=== PATIENT | female | born 1945 | race Caucasian/White ===

== ENCOUNTER → 2016-09-10 | Outpatient (REF) | payer MEDICARE, OTHER ==
[2016-09-10 13:08] LABS: FREE T4 1.33 NG/DL (0.76-1.46)
== END ==
LOC: M LABDRAW1 11:12
PROVIDERS: ATTEND Family Medicine
DX: E03.9 Hypothyroidism, unspecified (principal); E11.65 Type 2 diabetes mellitus with hyperglycemia

== ENCOUNTER → 2016-12-31 | Outpatient (REF) | payer MEDICARE, OTHER ==
[2016-12-31 14:23] LABS: ALBUMIN/GLOBULIN RATIO 0.48 (1.00-1.93); BILIRUBIN,TOTAL 0.3 MG/DL (0.2-1.0); CALCIUM LEVEL 8.5 MG/DL (8.8-10.2); CREATININE FOR GFR 1.18 MG/DL (0.55-1.02); GLOMERULAR FILTRATION RATE 48.2 (>39); TOTAL PROTEIN 6.2 GM/DL (6.4-8.2)
== END ==
LOC: M LABDRAW1 13:51
PROVIDERS: ATTEND Family Medicine
DX: E11.65 Type 2 diabetes mellitus with hyperglycemia (principal)

== ENCOUNTER → 2017-06-04 | Outpatient (REF) | payer MEDICARE, OTHER | LOC: M LAB REF 13:17 | PROVIDERS: ATTEND Surgery | DX: L72.3 Sebaceous cyst (principal) ==

== ENCOUNTER → 2017-06-25 | Outpatient (REF) | payer MEDICARE, OTHER | LOC: M LAB REF 18:57 | DX: N64.9 Disorder of breast, unspecified (principal) | CPT/HCPCS: 88305 ==

== ENCOUNTER → 2017-06-30 | Outpatient (REF) | payer MEDICARE, OTHER ==
[2017-06-30 11:56] LABS: HEMATOCRIT 23.3 % (36.0-47.0); HEMOGLOBIN 7.1 g/dl (12.0-16.0); MEAN CORPUSCULAR HEMOGLOBIN 26.1 pg (27.0-33.0); MEAN CORPUSCULAR HGB CONC 30.5 g/dl (32.0-36.5); MEAN CORPUSCULAR VOLUME 85.7 fl (80.0-96.0); PLATELET COUNT, AUTOMATED 112 10^3/uL (150-450); RED BLOOD COUNT 2.72 10^6/uL (4.00-5.40); RED CELL DISTRIBUTION WIDTH 21.4 % (11.5-14.5); WHITE BLOOD COUNT 3.6 10^3/uL (4.0-10.0)
[2017-06-30 11:59] LABS: ADD MANUAL DIFFER YES; DIFF SLIDE NUMBER 229; POS COUNT POS FLAG; POSITIVE DIFF POS FLAG; POSITIVE MORPH POS FLAG
[2017-06-30 12:34] LABS: ALBUMIN 2.6 GM/DL (3.2-5.2); ALBUMIN/GLOBULIN RATIO 0.53 (1.00-1.93); ALKALINE PHOSPHATASE 289 U/L (45-117); ALT/SGPT 22 U/L (12-78); ANION GAP 9 MEQ/L (8-16); AST/SGOT 36 U/L (7-37); BILIRUBIN,TOTAL 0.2 MG/DL (0.2-1.0); BLOOD UREA NITROGEN 42 MG/DL (7-18); CALCIUM LEVEL 8.2 MG/DL (8.8-10.2); CARBON DIOXIDE LEVEL 18 MEQ/L (21-32); CHLORIDE LEVEL 110 MEQ/L (98-107); CHOLESTEROL LEVEL 181 MG/DL (<200); CHOLESTEROL RISK RATIO 10.647 (<5); CREATININE FOR GFR 1.16 MG/DL (0.55-1.02); GLUCOSE, FASTING 170 MG/DL (83-110); HDL CHOLESTEROL 17 MG/DL (>40); NON-HDL-C 164 MG/DL; POTASSIUM SERUM 4.1 MEQ/L (3.5-5.1); SODIUM LEVEL 137 MEQ/L (136-145); THYROXINE (T4) 5.3 UG/DL (4.5-12.0); TOTAL PROTEIN 7.5 GM/DL (6.4-8.2); TRIGLYCERIDES LEVEL 401 MG/DL (<150)
[2017-06-30 12:42] LABS: EOSINOPHILS 2 % (0-5); LYMPHOCYTES 60 % (16-52); MONOCYTES 6 % (0-8); NEUTROPHILS 32 % (35-75); PLATELET ESTIMATE NORMAL (NORMAL)
[2017-06-30 12:52] LABS: CREATININE, URINE 72.1 MG/DL; MAU/CREAT RATIO 4160.8 MCG/MG (0.0-30.0)
[2017-06-30 13:29] LABS: ESTIMATED AVERAGE GLUCOSE 169 MG/DL (60-110); HEMOGLOBIN A1c 7.5 %
== END ==
LOC: M LABDRAW1 10:48
DX: E11.65 Type 2 diabetes mellitus with hyperglycemia (principal); E03.9 Hypothyroidism, unspecified
CPT/HCPCS: 84443

== ENCOUNTER → 2017-07-07 | Outpatient (REF) | payer MEDICARE, OTHER | LOC: M LAB REF 18:12 | DX: C85.90 Non-Hodgkin lymphoma, unspecified, unspecified site (principal); C83.11 Mantle cell lymphoma, lymph nodes of head, face, and neck (principal) | CPT/HCPCS: 86706; 88313 ==

== ENCOUNTER → 2017-07-07 | Outpatient (REF) | payer MEDICARE, OTHER ==
[2017-07-08 11:33] LABS: HEPATITIS B SURFACE ANTIGEN NEGATIVE (NEGATIVE)
[2017-07-08 11:41] LABS: HEPATITIS C VIRUS ABY INDEX 0.2 INDEX (<0.8)
[2017-07-08 11:42] LABS: HEPATITIS B CORE ANTIBODY IGM NEGATIVE (NEGATIVE); HIV 1&2 SCREEN CENTAUR NEGATIVE (NEGATIVE)
[2017-07-08 12:02] LABS: HEPATITIS B SURFACE ANTIBODY NEGATIVE (POSITIVE)
== END ==
LOC: M LAB REF 17:28
DX: C85.90 Non-Hodgkin lymphoma, unspecified, unspecified site (principal)
CPT/HCPCS: 86706

== ENCOUNTER → 2017-07-13 | Outpatient (CLI) | payer MEDICARE, OTHER | LOC: M CARPUL 08:25 | DX: C83.10 Mantle cell lymphoma, unspecified site (principal); Z79.899 Other long term (current) drug therapy | CPT/HCPCS: 93306 ==

== ENCOUNTER → 2017-07-14 | Outpatient (CLI) | payer MEDICARE, OTHER | LOC: M PLARAD 09:56 | DX: C83.14 Mantle cell lymphoma, lymph nodes of axilla and upper limb (principal) | CPT/HCPCS: 78815 ==

== ENCOUNTER → 2017-07-23 | Outpatient (CLI) | payer MEDICARE, OTHER ==
[~2017-07-23] MED LIST: CLINDAMYCIN 600 MG/50 ML PREMIX BAG As Ordered; LIDOCAINE 2% MDV 20 ML VIAL As Ordered; MIDAZOLAM INJ 2 MG/2 ML VIAL (J2250) As Ordered; fentaNYL 100 MCG/2 ML INJECTION (J3010) As Ordered
== END | disposition home or self-care (01) ==
LOC: M IRPRO 10:42
DX: C83.10 Mantle cell lymphoma, unspecified site (principal)
CPT/HCPCS: 36561

== ENCOUNTER 2017-08-18 12:45 | Outpatient (CLI) | payer MEDICARE, OTHER ==
[2017-08-18] MEDS: diphenhydrAMINE 25 MG CAP PO (13:00)
[2017-08-18] MEDS: ACETAMINOPHEN TAB 650MG DOSE (2X325MG) PO (13:01)
[2017-08-18 16:07] LABS: IMMEDIATE SPIN CROSSMATCH 1 2
[2017-08-18] MEDS: SODIUM CHLORIDE 0.9% INJ 10 ML SYR IV (18:13)
[2017-08-19] MEDS ORDERED: SODIUM CHLORIDE 0.9% INJ 10 ML SYR IV (09:00)
== END 2017-08-18 18:50 | disposition home or self-care (01) ==
LOC: M OPCLI5PR 12:45 → M MS5PR 12:45 → M OPCLI5PR 18:50
DX: D64.9 Anemia, unspecified (principal); Z88.0 Allergy status to penicillin; Z88.2 Allergy status to sulfonamides; E03.9 Hypothyroidism, unspecified
CPT/HCPCS: 36430

== ENCOUNTER → 2017-08-18 | Outpatient (REF) | payer MEDICARE, OTHER ==
[2017-08-18 14:13] LABS: FREE T4 0.78 NG/DL (0.76-1.46)
== END ==
LOC: M LAB REF 13:42
DX: E03.9 Hypothyroidism, unspecified (principal)

== ENCOUNTER 2017-08-25 10:35 | Outpatient (CLI) | payer MEDICARE, OTHER ==
[2017-08-25] MEDS: ACETAMINOPHEN TAB 650MG DOSE (2X325MG) PO ×2 (11:36)
[2017-08-25] MEDS: diphenhydrAMINE 25 MG CAP PO ×2 (11:36)
[2017-08-25 11:43] LABS: IMMEDIATE SPIN CROSSMATCH 1 2
[2017-08-25] MEDS: SODIUM CHLORIDE 0.9% INJ 10 ML SYR IV ×2 (16:04)
[2017-08-26] MEDS ORDERED: SODIUM CHLORIDE 0.9% INJ 10 ML SYR IV ×2 (09:00)
== END 2017-08-25 16:15 | disposition home or self-care (01) ==
LOC: M INFU 10:35
DX: C83.10 Mantle cell lymphoma, unspecified site (principal); D63.8 Anemia in other chronic diseases classified elsewhere; E78.00 Pure hypercholesterolemia, unspecified; E11.9 Type 2 diabetes mellitus without complications; Z79.899 Other long term (current) drug therapy; Z88.8 Allergy status to other drugs, medicaments and biological substances; Z87.891 Personal history of nicotine dependence
CPT/HCPCS: 36430

== ENCOUNTER 2017-09-03 09:40 | Inpatient (IN) | payer MEDICARE, OTHER ==
[2017-09-03] MEDS: OLOPATADINE 0.1% OPHTH SOL 5ML(PATANOL) OU (09:00)
[2017-09-03] MEDS: NS 1,000 ML IV ×2 (10:35→12:26)
[2017-09-03 10:43] LABS: HEMATOCRIT 26.2 % (36.0-47.0); HEMOGLOBIN 8.3 g/dl (12.0-16.0); MEAN CORPUSCULAR HEMOGLOBIN 29.1 pg (27.0-33.0); MEAN CORPUSCULAR HGB CONC 31.7 g/dl (32.0-36.5); MEAN CORPUSCULAR VOLUME 91.9 fl (80.0-96.0); RED BLOOD COUNT 2.85 10^6/uL (4.00-5.40); RED CELL DISTRIBUTION WIDTH 20.9 % (11.5-14.5); WHITE BLOOD COUNT 8.2 10^3/uL (4.0-10.0)
[2017-09-03 10:46] LABS: ADD MANUAL DIFFER YES; DIFF SLIDE NUMBER 183; IMMATURE PLATELET FRACTION % 3.9 % (0.0-9.6); PLATELET COUNT, AUTOMATED 44 10^3/uL (150-450); PLATELET F 46; POSITIVE DIFF POS FLAG; POSITIVE MORPH POS FLAG
[2017-09-03 10:59] LABS: INR 1.18; PROTHROMBIN TIME 15.2 SECONDS (12.4-14.5)
[2017-09-03 11:00] LABS: PARTIAL THROMBOPLASTIN TIME 34.7 SECONDS (26.8-37.9)
[2017-09-03 11:06] LABS: LACTIC ACID SEPSIS PROTOCOL 1.7 MMOL/L (0.4-2.0)
[2017-09-03 11:07] LABS: ALBUMIN 2.2 GM/DL (3.2-5.2); ALBUMIN/GLOBULIN RATIO 0.44 (1.00-1.93); ALKALINE PHOSPHATASE 268 U/L (45-117); ALT/SGPT 17 U/L (12-78); ANION GAP 12 MEQ/L (8-16); AST/SGOT 29 U/L (7-37); BILIRUBIN,DIRECT 0.3 MG/DL (0.0-0.2); BILIRUBIN,TOTAL 0.9 MG/DL (0.2-1.0); BLOOD UREA NITROGEN 56 MG/DL (7-18); CALCIUM LEVEL 8.8 MG/DL (8.8-10.2); CARBON DIOXIDE LEVEL 15 MEQ/L (21-32); CHLORIDE LEVEL 104 MEQ/L (98-107); CPK CREATINE PHOSPHOKINASE 37 U/L (26-192); CREATININE FOR GFR 1.76 MG/DL (0.55-1.30); GLOMERULAR FILTRATION RATE 30.3 (>39); POTASSIUM SERUM 4.3 MEQ/L (3.5-5.1); SODIUM LEVEL 131 MEQ/L (136-145); TOTAL PROTEIN 7.2 GM/DL (6.4-8.2); TROPONIN I 0.09 NG/ML (< 0.10)
[2017-09-03 11:11] LABS: ATYPICAL LYMPH 2 % (0-5); LYMPHOCYTES 60 % (16-52); MONOCYTES 8 % (0-8); NEUTROPHILS 30 % (35-75)
[2017-09-03 11:12] LABS: ANISOCYTOSIS 2+; SMUDGE CELLS 4+; TEAR DROP CELLS 1+
[2017-09-03 11:13] LABS: CK-MB VALUE MASS 1.3 NG/ML (<3.6); MB/CK RELATIVE INDEX 3.51 (< OR =4); PLATELET ESTIMATE MARKED DECREASE (NORMAL)
[2017-09-03 11:14] LABS: GLUCOSE, FASTING 481 MG/DL (70-100)
[2017-09-03 11:25] LABS: BEDSIDE GLUCOSE 473 MG/DL (83-110)
[2017-09-03 12:02] LABS: ABG BASE EXCESS -11.1 (-2.0-2.0); ABG HCO3 12.8 MEQ/L (22.0-26.0); ABG O2 SATURATION 91.3 % (95.0-99.0); ABG PARTIAL PRESSURE CO2 22.6 mmHg (35.0-45.0); ABG PARTIAL PRESSURE O2 67.6 mmHg (75.0-100.0); ABG STANDARD HCO3 15.4 MEQ/L (22.0-26.0); ABG TOTAL CO2 13.5 MEQ/L (23.0-31.0)
[2017-09-03] MEDS: HumuLIN R (REGULAR) INSULIN (NovoLIN R) **100U/ML** PER UNIT IV (12:26)
[2017-09-03] MEDS ORDERED: ONDANSETRON 4 MG TAB (S0181) PO (13:15)
[2017-09-03] MEDS ORDERED: ONDANSETRON 4MG/2ML VIAL (J2405) IV (13:15)
[2017-09-03] MEDS ORDERED: PROCHLORPERAZINE 5 MG TAB (S0183) PO (13:15)
[2017-09-03] MEDS: SERTRALINE 100 MG TAB PO (14:30)
[2017-09-03] MEDS: IPRATROPIUM 0.5MG/ALBUTEROL 2.5MG INH SOL UD 3ML (DUONEB)(J7620) NEB ×3 (15:00→23:26)
[2017-09-03] MEDS ORDERED: GLUCOSE 4 GM CHEW TABLET PO (15:00)
[2017-09-03] MEDS ORDERED: DEXTROSE 50% 50 ML SYRINGE IV (15:00)
[2017-09-03] MEDS ORDERED: GLUCAGON FOR INJ 1 MG VIAL (J1610) SC (15:00)
[2017-09-03 15:03] LABS: ERYTHROCYTE SEDIMENTATION RATE 66 mm/hr (0-30)
[2017-09-03 15:29] LABS: C REACTIVE PROTEIN QUANTITATIV 8.47 MG/DL (0.00-0.30); MAGNESIUM LEVEL 1.8 MG/DL (1.8-2.4); PHOSPHORUS LEVEL 3.7 MG/DL (2.5-4.9)
[2017-09-03] MEDS: LEVOTHYROXINE 150MCG TABLET (0.15MG) PO (15:44)
[2017-09-03] MEDS: ACETAMINOPHEN TAB 650MG DOSE (2X325MG) PO (15:45)
[2017-09-03] MEDS: diphenhydrAMINE 25 MG CAP PEG (15:45)
[2017-09-03] MEDS: HumaLOG INSULIN (NovoLOG) PER UNIT SC ×2 (17:31→22:21)
[2017-09-03] MEDS: POLYVINYL ALCOHOL OPHTH SOLN 15 ML(LIQUITEARS) OU ×2 (17:32→22:02)
[2017-09-03] MEDS: MEGESTROL 40 MG TAB PO (17:32)
[2017-09-03 17:33] LABS: BEDSIDE GLUCOSE 459 MG/DL (83-110)
[2017-09-03] MEDS: ACYCLOVIR 5% OINT 15GM TOP ×2 (17:33→22:02)
[2017-09-03 20:52] LABS: ANION GAP 12 MEQ/L (8-16); BLOOD UREA NITROGEN 60 MG/DL (7-18); CALCIUM LEVEL 8.6 MG/DL (8.8-10.2); CARBON DIOXIDE LEVEL 14 MEQ/L (21-32); CHLORIDE LEVEL 109 MEQ/L (98-107); CREATININE FOR GFR 1.78 MG/DL (0.55-1.30); GLOMERULAR FILTRATION RATE 29.9 (>39); GLUCOSE, FASTING 359 MG/DL (70-100); POTASSIUM SERUM 3.8 MEQ/L (3.5-5.1); SODIUM LEVEL 135 MEQ/L (136-145)
[2017-09-03 20:53] LABS: BEDSIDE GLUCOSE 351 MG/DL (83-110)
[2017-09-03 21:34] LABS: IMMEDIATE SPIN CROSSMATCH 1 2
[2017-09-03 23:05] LABS: HEMATOCRIT 29.5 % (36.0-47.0); HEMOGLOBIN 9.4 g/dl (12.0-16.0); MEAN CORPUSCULAR HEMOGLOBIN 29.7 pg (27.0-33.0); MEAN CORPUSCULAR HGB CONC 31.9 g/dl (32.0-36.5); MEAN CORPUSCULAR VOLUME 93.4 fl (80.0-96.0); RED BLOOD COUNT 3.16 10^6/uL (4.00-5.40); RED CELL DISTRIBUTION WIDTH 19.9 % (11.5-14.5); WHITE BLOOD COUNT 9.9 10^3/uL (4.0-10.0)
[2017-09-03 23:06] LABS: PLATELET COUNT, AUTOMATED 43 10^3/uL (150-450)
[2017-09-04] MEDS: LATANOPROST 0.005% OPHTH SOLN 2.5 ML OU ×2 (00:45→21:27)
[2017-09-04] MEDS: OLOPATADINE 0.1% OPHTH SOL 5ML(PATANOL) OU ×3 (00:45→21:27)
[2017-09-04] MEDS: IPRATROPIUM 0.5MG/ALBUTEROL 2.5MG INH SOL UD 3ML (DUONEB)(J7620) NEB ×4 (02:11→20:00)
[2017-09-04 02:17] LABS: HEMATOCRIT 30.3 % (36.0-47.0); HEMOGLOBIN 9.7 g/dl (12.0-16.0); MEAN CORPUSCULAR VOLUME 93.8 fl (80.0-96.0); PLATELET COUNT, AUTOMATED 44 10^3/uL (150-450); RED BLOOD COUNT 3.23 10^6/uL (4.00-5.40); RED CELL DISTRIBUTION WIDTH 19.3 % (11.5-14.5)
[2017-09-04 05:45] LABS: HEMATOCRIT 29.8 % (36.0-47.0); HEMOGLOBIN 9.3 g/dl (12.0-16.0); MEAN CORPUSCULAR HGB CONC 31.2 g/dl (32.0-36.5); MEAN CORPUSCULAR VOLUME 92.8 fl (80.0-96.0); RED BLOOD COUNT 3.21 10^6/uL (4.00-5.40); RED CELL DISTRIBUTION WIDTH 19.7 % (11.5-14.5); WHITE BLOOD COUNT 10.1 10^3/uL (4.0-10.0)
[2017-09-04] MEDS: LEVOTHYROXINE 150MCG TABLET (0.15MG) PO (05:45)
[2017-09-04 05:50] LABS: PLATELET COUNT, AUTOMATED 43 10^3/uL (150-450)
[2017-09-04 06:03] LABS: ANION GAP 11 MEQ/L (8-16); BLOOD UREA NITROGEN 59 MG/DL (7-18); CALCIUM LEVEL 8.6 MG/DL (8.8-10.2); CARBON DIOXIDE LEVEL 15 MEQ/L (21-32); CHLORIDE LEVEL 111 MEQ/L (98-107); CHOLESTEROL LEVEL 269 MG/DL (<200); CHOLESTEROL RISK RATIO 16.812 (<5); CREATININE FOR GFR 1.61 MG/DL (0.55-1.30); GLOMERULAR FILTRATION RATE 33.6 (>39); GLUCOSE, FASTING 157 MG/DL (70-100); HDL CHOLESTEROL 16 MG/DL (>40); LDL CHOLESTEROL 187.8 MG/DL (<100); NON-HDL-C 253 MG/DL; POTASSIUM SERUM 4.2 MEQ/L (3.5-5.1); SODIUM LEVEL 137 MEQ/L (136-145); TRIGLYCERIDES LEVEL 326 MG/DL (<150)
[2017-09-04] MEDS: MEGESTROL 40 MG TAB PO (08:32)
[2017-09-04] MEDS: SERTRALINE 100 MG TAB PO (08:32)
[2017-09-04] MEDS: POLYVINYL ALCOHOL OPHTH SOLN 15 ML(LIQUITEARS) OU ×4 (08:32→21:23)
[2017-09-04] MEDS: HumaLOG INSULIN (NovoLOG) PER UNIT SC ×4 (08:32→21:00)
[2017-09-04] MEDS: ACYCLOVIR 5% OINT 15GM TOP ×4 (08:33→21:23)
[2017-09-04] MEDS: ACETAMINOPHEN TAB 650MG DOSE (2X325MG) PO (12:10)
[2017-09-04 12:18] LABS: BEDSIDE GLUCOSE 131 MG/DL (83-110)
[2017-09-04 16:57] LABS: BEDSIDE GLUCOSE 76 MG/DL (83-110)
[2017-09-04 21:01] LABS: BEDSIDE GLUCOSE 94 MG/DL (83-110)
[2017-09-05] MEDS: IPRATROPIUM 0.5MG/ALBUTEROL 2.5MG INH SOL UD 3ML (DUONEB)(J7620) NEB ×4 (02:00→20:00)
[2017-09-05 05:26] LABS: HEMATOCRIT 27.1 % (36.0-47.0); HEMOGLOBIN 8.5 g/dl (12.0-16.0); MEAN CORPUSCULAR HEMOGLOBIN 29.4 pg (27.0-33.0); MEAN CORPUSCULAR HGB CONC 31.4 g/dl (32.0-36.5); MEAN CORPUSCULAR VOLUME 93.8 fl (80.0-96.0); RED BLOOD COUNT 2.89 10^6/uL (4.00-5.40); RED CELL DISTRIBUTION WIDTH 20.3 % (11.5-14.5)
[2017-09-05 05:27] LABS: PLATELET COUNT, AUTOMATED 37 10^3/uL (150-450)
[2017-09-05 05:29] LABS: IMMATURE PLATELET FRACTION % 2.8 % (0.0-9.6)
[2017-09-05 05:51] LABS: ANION GAP 11 MEQ/L (8-16); BLOOD UREA NITROGEN 63 MG/DL (7-18); CALCIUM LEVEL 8.8 MG/DL (8.8-10.2); CARBON DIOXIDE LEVEL 14 MEQ/L (21-32); CHLORIDE LEVEL 114 MEQ/L (98-107); CREATININE FOR GFR 1.48 MG/DL (0.55-1.30); GLUCOSE, FASTING 145 MG/DL (70-100); POTASSIUM SERUM 4.1 MEQ/L (3.5-5.1); SODIUM LEVEL 139 MEQ/L (136-145)
[2017-09-05] MEDS: LEVOTHYROXINE 150MCG TABLET (0.15MG) PO (06:42)
[2017-09-05] MEDS: HumaLOG INSULIN (NovoLOG) PER UNIT SC ×2 (07:39→12:27)
[2017-09-05] MEDS ORDERED: ALPRAZolam 0.25 MG TAB PO (08:30)
[2017-09-05] MEDS ORDERED: zolPIDEM TARTRATE 5 MG TAB PO (08:30)
[2017-09-05] MEDS ORDERED: MORPHINE 10MG/0.5ML ORAL CONCENTRATE SOLUTION U/D SL ×2 (08:45→11:00)
[2017-09-05] MEDS: OLOPATADINE 0.1% OPHTH SOL 5ML(PATANOL) OU ×2 (09:46→21:00)
[2017-09-05] MEDS: POLYVINYL ALCOHOL OPHTH SOLN 15 ML(LIQUITEARS) OU ×4 (09:46→21:00)
[2017-09-05] MEDS: ACYCLOVIR 5% OINT 15GM TOP ×4 (09:47→21:00)
[2017-09-05] MEDS: ALPRAZolam 0.25 MG TAB PO (10:30)
[2017-09-05] MEDS ORDERED: ONDANSETRON 4MG/2ML VIAL (J2405) IV (11:45)
[2017-09-05 11:58] LABS: BEDSIDE GLUCOSE 171 MG/DL (83-110)
[2017-09-05] MEDS: MORPHINE 4 MG/ML 1ML VIAL (J2270) IV ×4 (12:54→21:11)
[2017-09-05] MEDS: LATANOPROST 0.005% OPHTH SOLN 2.5 ML OU (21:00)
[2017-09-06] MEDS: IPRATROPIUM 0.5MG/ALBUTEROL 2.5MG INH SOL UD 3ML (DUONEB)(J7620) NEB ×4 (02:00→20:39)
[2017-09-06] MEDS: MORPHINE 4 MG/ML 1ML VIAL (J2270) IV ×3 (02:52→18:06)
[2017-09-06] MEDS: SCOPOLAMINE 1MG TRANSDERMAL PATCH TOP (02:52)
[2017-09-06 05:39] LABS: HEMATOCRIT 27.1 % (36.0-47.0); HEMOGLOBIN 8.2 g/dl (12.0-16.0); MEAN CORPUSCULAR HEMOGLOBIN 29.2 pg (27.0-33.0); MEAN CORPUSCULAR HGB CONC 30.3 g/dl (32.0-36.5); MEAN CORPUSCULAR VOLUME 96.4 fl (80.0-96.0); RED BLOOD COUNT 2.81 10^6/uL (4.00-5.40); RED CELL DISTRIBUTION WIDTH 20.6 % (11.5-14.5); WHITE BLOOD COUNT 10.6 10^3/uL (4.0-10.0)
[2017-09-06 05:59] LABS: PLATELET COUNT, AUTOMATED 33 10^3/uL (150-450)
[2017-09-06 06:01] LABS: ANION GAP 9 MEQ/L (8-16); BLOOD UREA NITROGEN 66 MG/DL (7-18); CALCIUM LEVEL 8.7 MG/DL (8.8-10.2); CARBON DIOXIDE LEVEL 15 MEQ/L (21-32); CHLORIDE LEVEL 118 MEQ/L (98-107); CREATININE FOR GFR 1.56 MG/DL (0.55-1.30); GLOMERULAR FILTRATION RATE 34.8 (>39); GLUCOSE, FASTING 54 MG/DL (70-100); POTASSIUM SERUM 4.3 MEQ/L (3.5-5.1); SODIUM LEVEL 142 MEQ/L (136-145)
[2017-09-06] MEDS: ACYCLOVIR 5% OINT 15GM TOP ×4 (07:47→21:00)
[2017-09-06] MEDS: OLOPATADINE 0.1% OPHTH SOL 5ML(PATANOL) OU ×2 (07:47→21:00)
[2017-09-06] MEDS: POLYVINYL ALCOHOL OPHTH SOLN 15 ML(LIQUITEARS) OU ×4 (07:47→21:00)
[2017-09-06] MEDS: LATANOPROST 0.005% OPHTH SOLN 2.5 ML OU (21:00)
[2017-09-07] MEDS: IPRATROPIUM 0.5MG/ALBUTEROL 2.5MG INH SOL UD 3ML (DUONEB)(J7620) NEB ×4 (02:00→20:00)
[2017-09-07] MEDS: ACYCLOVIR 5% OINT 15GM TOP ×4 (09:00→20:44)
[2017-09-07] MEDS: OLOPATADINE 0.1% OPHTH SOL 5ML(PATANOL) OU ×2 (09:00→20:43)
[2017-09-07] MEDS: POLYVINYL ALCOHOL OPHTH SOLN 15 ML(LIQUITEARS) OU ×4 (09:00→20:43)
[2017-09-07] MEDS: MORPHINE 4 MG/ML 1ML VIAL (J2270) IV ×2 (11:27→16:26)
[2017-09-07] MEDS: LORazepam 2 MG/ML VIAL (J2060) IV ×2 (12:01→18:18)
[2017-09-07] MEDS: LATANOPROST 0.005% OPHTH SOLN 2.5 ML OU (20:44)
[2017-09-08] MEDS: IPRATROPIUM 0.5MG/ALBUTEROL 2.5MG INH SOL UD 3ML (DUONEB)(J7620) NEB (02:00)
== END 2017-09-08 00:05 | disposition expired | DRG 840 ==
LOC: M ED 09:40 → M ED INP 13:02 → M MSPAV 15:06
PROC: 30233N1 Transfusion of Nonautologous Red Blood Cells into Peripheral Vein, Percutaneous Approach (ICD-10-PCS; principal; 2017-09-03)
DX: C83.18 Mantle cell lymphoma, lymph nodes of multiple sites (principal); E43 Unspecified severe protein-calorie malnutrition; N17.9 Acute kidney failure, unspecified; E87.2 Acidosis; R64 Cachexia; Z68.1 Body mass index [BMI] 19.9 or less, adult; R18.8 Other ascites; E87.1 Hypo-osmolality and hyponatremia; J90 Pleural effusion, not elsewhere classified; D64.9 Anemia, unspecified; E03.9 Hypothyroidism, unspecified; E11.65 Type 2 diabetes mellitus with hyperglycemia; I10 Essential (primary) hypertension; E78.5 Hyperlipidemia, unspecified; Z88.1 Allergy status to other antibiotic agents; Z88.0 Allergy status to penicillin; Z88.2 Allergy status to sulfonamides; Z79.82 Long term (current) use of aspirin; Z79.899 Other long term (current) drug therapy; D69.6 Thrombocytopenia, unspecified; F39 Unspecified mood [affective] disorder; H40.9 Unspecified glaucoma; Z66 Do not resuscitate; E86.0 Dehydration; G47.00 Insomnia, unspecified; F41.9 Anxiety disorder, unspecified; Z51.5 Encounter for palliative care